=== PATIENT | male | born 1945 | race Caucasian/White ===

== ENCOUNTER 2016-11-14 08:45 | Outpatient (RCR) | payer MEDICARE, BC | END 2016-11-20 | disposition home or self-care (01) | LOC: WSPT | DX: M75.52 Bursitis of left shoulder (principal); M75.51 Bursitis of right shoulder; M77.8 Other enthesopathies, not elsewhere classified | CPT/HCPCS: G0283-GP; G8984-GP; G8985-GP ==

== ENCOUNTER → 2017-12-30 | Outpatient (CLI) | payer MEDICARE, BC | LOC: COL.RAD 11:42 | DX: Z13.6 Encounter for screening for cardiovascular disorders (principal) ==

== ENCOUNTER 2019-04-14 10:15 | Outpatient (RCR) | payer MEDICARE, BC | END 2019-07-13 | LOC: WSPT | DX: Z01.818 Encounter for other preprocedural examination (principal); M17.11 Unilateral primary osteoarthritis, right knee ==

== ENCOUNTER 2019-06-24 09:45 | Outpatient (RCR) | payer MEDICARE, BC | END 2019-07-22 | disposition home or self-care (01) | LOC: WSPT | DX: Z96.651 Presence of right artificial knee joint (principal) ==

== ENCOUNTER 2022-01-31 10:45 | Outpatient (RCR) | payer MEDICARE, BC | END 2022-02-02 | LOC: PT.GENESIS | DX: M25.661 Stiffness of right knee, not elsewhere classified (principal); Z96.651 Presence of right artificial knee joint ==

== ENCOUNTER 2022-01-31 11:15 | Outpatient (RCR) | payer MEDICARE, BC | END 2022-02-02 | LOC: PT.GENESIS | DX: M51.16 Intervertebral disc disorders with radiculopathy, lumbar region (principal) ==

== ENCOUNTER 2022-02-28 10:15 | Outpatient (RCR) | payer MEDICARE, BC | END 2022-03-05 | disposition home or self-care (01) | LOC: PT.GENESIS | DX: M25.661 Stiffness of right knee, not elsewhere classified (principal) ==

== ENCOUNTER 2022-02-28 10:45 | Outpatient (RCR) | payer MEDICARE, BC | END 2022-03-05 | disposition home or self-care (01) | LOC: PT.GENESIS | DX: M51.16 Intervertebral disc disorders with radiculopathy, lumbar region (principal) ==